=== PATIENT | female | born 1965 | race Caucasian/White ===

== ENCOUNTER → 2020-11-11 | Outpatient (CLI) | payer OTHER ==
[~2020-11-11] MED LIST: ADDERALL 15 MG15 MG PO; ADDERALL 20 MG20 MG PO; ATORVASTATIN CA40 MG PO; BENTYL 10MG CAP10 MG PO; CITALOPRAM HBR40 MG PO; CYCLOBENZAPRINE10 MG PO; FOLIC ACID1 MG PO; LATUDA60 MG PO; LISINOPRIL20 MG PO; METOPROLOL SUCC25 MG PO; NAPROSYN500 MG PO; NORFLEX 100 MG100 MG PO; PREDNISONE 50 M50 MG PO; PYRIDIUM100 MG PO; SEROQUEL50 MG PO
[2020-11-11 10:20] LABS: HEMOGLOBIN 14.6 gm/dl (12.3-15.3); RED BLOOD COUNT 4.87 M/UL (4.00-5.10); WHITE BLOOD COUNT 6.9 K/UL (4.5-11.0)
[2020-11-11 11:00] LABS: BUN/CREATININE RATIO 30 (0-10)
== END ==
LOC: OPSV2 09:00
PROVIDERS: Anesthesiology; Obstetrics & Gynecology
DX: Z01.818 Encounter for other preprocedural examination (principal); N32.81 Overactive bladder
CPT/HCPCS: 36415; 80048; 81001; 85025; 93005

== ENCOUNTER → 2020-11-13 | Day surgery (SDC) | payer OTHER | END | disposition home or self-care (01) | LOC: OR 07:45 | PROVIDERS: Obstetrics & Gynecology | PROC: 3E0K8GC Introduction of Other Therapeutic Substance into Genitourinary Tract, Via Natural or Artificial Opening Endoscopic (ICD-10-PCS; principal; 2020-11-13 12:45) | DX: N39.46 Mixed incontinence (principal); N32.81 Overactive bladder; I10 Essential (primary) hypertension; E78.5 Hyperlipidemia, unspecified; J45.909 Unspecified asthma, uncomplicated; F17.210 Nicotine dependence, cigarettes, uncomplicated; K76.0 Fatty (change of) liver, not elsewhere classified; F41.8 Other specified anxiety disorders; F90.9 Attention-deficit hyperactivity disorder, unspecified type; K21.9 Gastro-esophageal reflux disease without esophagitis; Z79.899 Other long term (current) drug therapy | CPT/HCPCS: C1769; J0585; J2001; J2250; J2405; J2704; J3010; J7120 ==

== ENCOUNTER 2021-04-25 19:09 | Emergency (ER) | payer OTHER ==
[~2021-04-25 19:09] MED LIST changes: -CYCLOBENZAPRINE10 MG PO
[2021-04-25] MEDS ORDERED: NAPROSYN500 MG PO (23:40)
[2021-04-25] MEDS ORDERED: CYCLOBENZAPRINE10 MG PO (23:40)
== END 2021-04-25 23:40 | disposition home or self-care (01) ==
LOC: ER1 19:09
DX: S16.1XXA Strain of muscle, fascia and tendon at neck level, initial encounter (principal); I10 Essential (primary) hypertension; E78.00 Pure hypercholesterolemia, unspecified; F17.200 Nicotine dependence, unspecified, uncomplicated; V49.40XA Driver injured in collision with unspecified motor vehicles in traffic accident, initial encounter; Y92.410 Unspecified street and highway as the place of occurrence of the external cause
CPT/HCPCS: 71045; 72125; 99284

== ENCOUNTER → 2021-05-09 | Outpatient (CLI) | payer OTHER ==
[~2021-05-09] MED LIST changes: +CYCLOBENZAPRINE10 MG PO
== END ==
LOC: EXRD 08:52
DX: K76.0 Fatty (change of) liver, not elsewhere classified (principal)
CPT/HCPCS: 76705

== ENCOUNTER → 2021-09-22 | Outpatient (CLI) | payer OTHER | LOC: NM 07:52 | DX: R74.8 Abnormal levels of other serum enzymes (principal) | CPT/HCPCS: 78306; A9503 ==

== ENCOUNTER → 2022-05-25 | Outpatient (CLI) | payer OTHER ==
[2022-05-25 14:09] LABS: HEMOGLOBIN 14.7 gm/dl (12.3-15.3); RED BLOOD COUNT 4.79 M/UL (4.00-5.10); WHITE BLOOD COUNT 7.2 K/UL (4.5-11.0)
[2022-05-25 14:23] LABS: BUN/CREATININE RATIO 37 (0-10)
== END ==
LOC: LAB 12:59
PROVIDERS: Physician Assistant
DX: R74.8 Abnormal levels of other serum enzymes (principal); E78.5 Hyperlipidemia, unspecified; E55.9 Vitamin D deficiency, unspecified; R53.83 Other fatigue
CPT/HCPCS: 36415; 80053; 80061; 82607; 84439; 84443; 85025; 85610

== ENCOUNTER → 2022-07-06 | Outpatient (CLI) | payer OTHER ==
[2022-07-06 11:10] LABS: BUN/CREATININE RATIO 34 (0-10)
== END ==
LOC: LAB 09:36
PROVIDERS: Physician Assistant
DX: R73.01 Impaired fasting glucose (principal)
CPT/HCPCS: 36415; 80053; 83036